=== PATIENT | male | born 1965 | race African-American/Black ===

== ENCOUNTER 2017-01-11 22:36 | Emergency (ER) | payer MEDICAID ==
[~2017-01-11] VITALS: Ht 172.7 cm; Wt 86.0 kg
[~2017-01-11 22:36] MED LIST: ASPIRIN; BENADRYL; HYDROCHLOROTHIAZIDE; PAXIL; [UNRECOGNIZED DRUG - OTHER]
[2017-01-11 22:37] VITALS: BP 142/98
== END 2017-01-11 22:59 | disposition left against medical advice (07) ==
LOC: ER 22:36
DX: Z04.3 Encounter for examination and observation following other accident (principal); Z53.21 Procedure and treatment not carried out due to patient leaving prior to being seen by health care provider